=== PATIENT | male | born 1965 | race Caucasian/White ===

== ENCOUNTER 2016-11-29 09:19 | Emergency (ER) | payer BC ==
[~2016-11-29] VITALS: Ht 172.7 cm; Wt 89.5 kg
[2016-11-29] MEDS ORDERED: ONDANSETRON HCL4 MG PO (09:57)
[2016-11-29 10:49] LABS: HEMATOCRIT 43.8 % (38.0-50.0); MCH 30.5 PG (29.0-34.0); MCHC 35.8 G/DL (30.0-36.0); MEAN PLAT.VOLUME 11.1 uM^3 (9.0-12.4); PLATELET COUNT 170 K/uL (156-360); RBC DIS.WIDTH-CV 12.8 % (11.8-14.6); RBC DIS.WIDTH-SD 39.8 % (39-53); RED BLOOD COUNT 5.15 M/uL (4.00-5.50); WHITE BLOOD COUNT 5.2 K/uL (4.1-10.2)
[2016-11-29 11:02] LABS: CHLORIDE 106 mEq/L (99-109); SODIUM 138 mEq/L (136-147)
[2016-11-29] MEDS ORDERED: ZOFRAN4 MG PO (11:02)
[2016-11-29 11:04] LABS: GLUCOSE 112 mg/dL (70-99)
[2016-11-29 11:05] LABS: ANION GAP 12 MEQ/L (2-14)
[2016-11-29 11:08] LABS: GFR ESTIMATE (CALCULATED) > 59 mL/min/
[2016-11-29 11:09] LABS: UREA NITROGEN (BUN) 9 mg/dL (9-23)
[2016-11-29 11:22] VITALS: BP 133/74
== END 2016-11-29 11:28 | disposition home or self-care (01) ==
LOC: EME 09:19
PROVIDERS: Physician Assistant
DX: J11.1 Influenza due to unidentified influenza virus with other respiratory manifestations (principal); R11.10 Vomiting, unspecified; Z87.891 Personal history of nicotine dependence
CPT/HCPCS: 80048; 85027; 99281; 99284; J1885; J2405; J7030